=== PATIENT | female | born 1990 | race Caucasian/White ===

== ENCOUNTER 2018-03-02 11:13 | Emergency (ER) | payer OTHER ==
[~2018-03-02] VITALS: Ht 167.6 cm; Wt 87.1 kg
[~2018-03-02 11:13] MED LIST: ACETAMINOPHEN-1 EAC1 PO; ACTICIN 5% CREA60 G1 TOP; CIPROFLOXACIN500 M1 PO; CLEOCIN HCL150 MG PO; CLEOCIN HCL300 MG PO; HYDROCODONE-APA1 TA1 PO; IBUPROFEN 800800 M1 PO; NOHOMEMEDICATIONS; NORCO 5-325 TA1 EACH PO; PYRIDIUM200 MG PO; VICODIN 5-5001 EACH PO; birth control
[2018-03-02] MEDS ORDERED: CLARITIN10 MG PO (11:38)
[2018-03-02] MEDS ORDERED: DIPHENHIST50 MG PO (11:39)
[2018-03-02] MEDS ORDERED: CLEOCIN HCL150 MG PO (11:57)
[2018-03-02] MEDS ORDERED: KEFLEX500 M1 PO (11:59)
[2018-03-02 12:19] VITALS: BP 142/83
== END 2018-03-02 12:19 | disposition home or self-care (01) ==
LOC: M.ERS 11:13
DX: L03.113 Cellulitis of right upper limb (principal); J45.909 Unspecified asthma, uncomplicated; F17.210 Nicotine dependence, cigarettes, uncomplicated; Z88.0 Allergy status to penicillin; Z88.6 Allergy status to analgesic agent; W57.XXXA Bitten or stung by nonvenomous insect and other nonvenomous arthropods, initial encounter; Y93.89 Activity, other specified; Y92.89 Other specified places as the place of occurrence of the external cause; Y99.8 Other external cause status

== ENCOUNTER 2018-07-12 23:55 | Emergency (ER) | payer OTHER ==
[~2018-07-12] VITALS: Ht 165.1 cm; Wt 83.9 kg
[~2018-07-12 23:55] MED LIST changes: +CLARITIN10 MG PO; +DIPHENHIST50 MG PO; +KEFLEX500 M1 PO
[2018-07-13 00:30] LABS: URINE BILIRUBIN NEGATIVE (Negative); URINE BLOOD 2+ (Negative); URINE CLARITY CLEAR; URINE COLOR YELLOW; URINE GLUCOSE-RANDOM NEGATIVE (Negative); URINE KETONES NEGATIVE (Negative); URINE NITRITE-REFLEX NEGATIVE (Negative); URINE PROTEIN 1+ (Negative); URINE UROBILINOGEN 0.2 E.U./dl (0.2-1.0)
[2018-07-13 00:31] LABS: URINE LEUKOCYTES-REFLEX 2+ (Negative)
[2018-07-13 00:32] LABS: HEMATOCRIT 36.3 % (37.0-47.0); HEMOGLOBIN 11.8 gm/dL (12.0-15.0); MCH 23.8 pg (26.0-34.0); MCHC 32.4 g/dL (28.0-37.0); MCV 73.3 fL (80.0-100.0); MPV 7.9 fl. (7.2-11.1); NUCLEATED RBCS 0 /100WBC; PLATELET COUNT* 180 thou/uL (150-400); RBC 4.95 mil/uL (4.20-5.00); RDW-CV 15.9 % (10.5-14.5); WBC 16.8 thou/uL (4.0-11.0)
[2018-07-13 00:36] LABS: BACTERIA-REFLEX >30 Many /HPF (None Seen); CASTS None Seen /LPF (None Seen); CRYSTALS None Seen /LPF (None Seen); MUCUS 0-3 Light strn/LPF (None Seen); SQUAMOUS 0-3 Few /LPF (0-3); URINE RBC >20 Many /HPF (0-2); URINE WBC-REFLEX >25 Many /HPF (0-5); WBC CLUMPS Moderate (None Seen)
[2018-07-13 00:41] LABS: CALCIUM 8.3 mg/dL (8.5-10.1); CREATININE 1.1 mg/dL (0.6-1.3); POTASSIUM 3.2 mmol/L (3.5-5.1)
[2018-07-13 00:46] LABS: ALBUMIN 2.7 g/dL (3.4-5.0); TOTAL BILIRUBIN 0.4 mg/dL (<0.1-1.0); TOTAL PROTEIN 7.1 g/dL (6.4-8.2)
[2018-07-13] MEDS ORDERED: ZOFRAN ODT4 MG PO (02:28)
[2018-07-13] MEDS ORDERED: BACTRIM DS TAB1 EACH PO (02:28)
[2018-07-13] MEDS ORDERED: NORCO 5-325 TA1 EACH PO (02:28)
[2018-07-13 02:39] VITALS: BP 120/72
[2018-07-13 02:44] LABS: ABSOLUTE LYMPHOCYTES 0.5 thou/uL (0.8-5.3); ABSOLUTE MONOCYTES 1.8 thou/uL (0.0-1.2); ABSOLUTE NEUTROPHILS 14.4 thou/uL (1.6-8.1); ANISOCYTOSIS Occasional; MICROCYTES 1+; PLATELET ESTIMATE ADEQUATE
[2018-07-13 02:45] LABS: CLUMPED PLTS FEW; HYPOCHROMASIA 1+; OVALOCYTES Occasional
[2018-07-13 02:46] LABS: TEARDROPS Occasional
== END 2018-07-13 02:40 | disposition home or self-care (01) ==
LOC: M.ERS 23:55
PROVIDERS: Physician Assistant
DX: N12 Tubulo-interstitial nephritis, not specified as acute or chronic (principal); J45.909 Unspecified asthma, uncomplicated; E28.2 Polycystic ovarian syndrome; F17.210 Nicotine dependence, cigarettes, uncomplicated; Z88.0 Allergy status to penicillin; Z88.6 Allergy status to analgesic agent

== ENCOUNTER 2020-09-08 15:12 | Emergency (ER) | payer OTHER ==
[~2020-09-08] VITALS: Ht 167.6 cm; Wt 84.4 kg
[~2020-09-08 15:12] MED LIST changes: +BACTRIM DS TAB1 EACH PO; +ZOFRAN ODT4 MG PO
[2020-09-08 16:00] LABS: URINE BILIRUBIN NEGATIVE (Negative); URINE BLOOD NEGATIVE (Negative); URINE CLARITY CLEAR; URINE COLOR YELLOW; URINE GLUCOSE-RANDOM NEGATIVE (Negative); URINE KETONES NEGATIVE (Negative); URINE LEUKOCYTES-REFLEX 1+ (Negative); URINE NITRITE-REFLEX NEGATIVE (Negative); URINE PROTEIN NEGATIVE (Negative); URINE SPECIFIC GRAVITY 1.025 (1.005-1.030); URINE UROBILINOGEN 0.2 E.U./dl (0.2-1.0)
[2020-09-08 16:18] LABS: CASTS None Seen /LPF (None Seen); CRYSTALS None Seen /LPF (None Seen); MUCUS 0-3 Light strn/LPF (None Seen); SQUAMOUS 4-10 Moderate /LPF (0-3); URINE RBC 0-2 Rare /HPF (0-2); URINE WBC-REFLEX 6-15 Few /HPF (0-5)
[2020-09-08 17:49] VITALS: BP 161/98
== END 2020-09-08 17:50 | disposition home or self-care (01) ==
LOC: M.ERS 15:12
PROVIDERS: Nurse Practitioner Family
DX: A59.01 Trichomonal vulvovaginitis (principal); J45.909 Unspecified asthma, uncomplicated; F17.210 Nicotine dependence, cigarettes, uncomplicated; Z88.0 Allergy status to penicillin; Z88.6 Allergy status to analgesic agent

== ENCOUNTER 2021-03-07 14:56 | Emergency (ER) | payer OTHER ==
[~2021-03-07] VITALS: Ht 167.6 cm; Wt 82.6 kg
[2021-03-07 15:07] VITALS: BP 132/82
[2021-03-07] MEDS ORDERED: ZOFRAN ODT4 MG PO (15:44)
[2021-03-07] MEDS ORDERED: PREDNISONE 20 M20 MG PO (15:44)
[2021-03-07] MEDS ORDERED: AZITHROMYCIN 2250 MG PO (15:44)
== END 2021-03-07 16:15 | disposition home or self-care (01) ==
LOC: M.ERS 14:56
DX: J03.90 Acute tonsillitis, unspecified (principal); J45.909 Unspecified asthma, uncomplicated; N80.9 Endometriosis, unspecified; F17.210 Nicotine dependence, cigarettes, uncomplicated; Z88.0 Allergy status to penicillin; Z88.6 Allergy status to analgesic agent; Z85.41 Personal history of malignant neoplasm of cervix uteri; Z90.49 Acquired absence of other specified parts of digestive tract